=== PATIENT | female | born 1975 | race Caucasian/White ===

== ENCOUNTER 2019-12-12 06:50 | Observation (INO) | payer BC ==
--- OUTSIDE RECORDS SUMMARY | 2019-12-12 06:55 | XMS REPORT | Clinical Summary ---
:1975 Author Organization [facility] Address [address] [place] [address] Care Team Providers Name Role Phone Juan Carlos Mcarthur MD Primary Care Provider Allergies Active Allergy Reactions Severity Noted Date Comments Morphine 06/01/2017 Chest pain Medications Medication Sig Dispensed Refills Start Date End Date Status montelukast Take 1 tablet 90 tablet 3 12/15/2017 Act balaji (SINGULAIR) 10 mg (10 mg total) tabletIndications: by mouth every Sensory morning. polyneuropathy, Sensory neuropathy fluticasone (FLONASE) 2 sprays into 0 06/08/2017 Active 50 mcg/actuation nasal each nostril spray daily. amoxicillin-pot Take 1 tablet 0 Active clavulanate by mouth 2 (AUGMENTIN) 875-125 mg (two) times a per tablet day. 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 12/13/2016 Cervical spondylosis 12/13/2016 Sensory neuropathy 12/13/2016 Encounters Date Type Specialty Care Team Description 12/14/2018 Telephone Neurology Gulshan Kaminski MD after 12/11/2018 Family History Medical History Relation Name Comments Hypertension Father Hypertension Mother Relation Name Status Comments Father Mother Social History Tobacco Use Types Packs/Day Years Used Date Never Smoker Smokeless Tobacco: Never Used Alcohol Use Drinks/Week oz/Week Comments Yes occ Sex Assigned at Date Recorded Not on file Job Start Date Occupation Industry Not on file Not on file Not on file Travel History Travel Start Travel End No recent travel history available. 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
--- OUTSIDE RECORDS SUMMARY | 2019-12-12 06:55 | XMS REPORT | Continuity of Care Document ---
:1975 Author Organization [facility] t Address [address] [place] [address] Care Team Providers Name Role Phone Blue DANIELLE [place] Primary Care Physician Arnaldo Kaminski MD Attending Clinician Payers Payer Name Policy Policy Number Effective Expiration Source Type Date Date [employer] [place] xxxxxxxxxxxx 2017 [facility]/O BLUE 00:00:00 [employer] ESSENTIALSxxxxxxxxxxx x/06/2016-PresentHMO Problems Condition Condition Condition Status Onset Resolution Last Treating Co mments Source Name Details Category Date Date Treatment Clinician Date Meniscus Meniscus Disease Active 2017-06 [place] degenerati degenerati 2-20 Me thodi on, right on, right 00:00: st 00 Chronic Chronic Disease Active 2017-06 [place] pain of pain of 2-20 [facility] right knee right knee 00:00: st 00 Acute Acute Disease Active 2017-06 [place] diffuse diffuse 2-20 [facility] otitis otitis 00:00: st externa of externa of 00 left ear left ear Reactive Reactive Disease Active [place] airway airway 6-21 [facility] disease disease 00:00: st without without 00 complicati complicati on on Muscle Muscle Disease Active [place] spasm spasm 6-21 [facility] 00:00: st 00 Sensory Sensory Disease Active 2016-06 [place] polyneurop polyneurop 2-11 Me thodi athy athy 00:00: st 00 Lumbar Lumbar Disease Active [place] radiculopa radiculopa 6- Oh odi thy thy 00:00: st 00 Acquired Acquired Disease Active [place] INSOLE TACKER lesion INSOLE TACKER lesion - Me odi 00:00: st 00 Cervical Cervical Disease Active [place] spondylosi spondylosi 6- Oh odi s s 00:00: st 00 Sensory Sensory Disease Active [place] neuropathy neuropathy 6- Me odi 00:00: st 00 Pain in Pain in Problem Active [facility] of [facility] - left wrist left wrist Me moria l [facility] ent Clinics Jammed Jammed Problem Active [facility] interphala interphala Danna kes - ngeal ngeal Memoria joint of joint of l finger of finger of Outp ati right right ent hand, hand, Clinics initial initial encounter encounter Memory Memory Problem Active [facility] problem problem [facility] - Memoria l [facility] Clinics Reflux Reflux Problem Active [facility] IBS IBS Problem Active [facility] (irritable (irritable Danna kes - bowel bowel Memoria syndrome) syndrome) l [facility] Clinics Ganglion Ganglion Problem Active [facility] cyst of cyst of [facility] - volar volar Memoria aspect of aspect of l left wrist left wrist Ou tpati ent Clinics Pain, Pain, Problem Active [facility] joint, joint, [facility] - hand, hand, Memoria right right l [facility] Clinics Sinus Sinus Diagnosis Active [facility] problem problem [facility] - Memoria [facility] Clinics Allergic Allergic Problem Active [facility] rhinitis, rhinitis, Luke s - unspecifie unspecifie Me moria d d l [facility] ent Clinics Shortness Shortness Problem Active [facility] of breath of breath Luke s - Memoria [facility] ent Clinics Obstructiv Obstructiv Diagnosis Active [facility] e sleep e sleep [facility] - apnea apnea [facility] Clinics Seasonal Seasonal Problem Active [facility] allergies allergies Luke s - Memoria [facility] ent Clinics Grief Grief Problem Active [facility] Adult BMI Adult BMI Problem Active [facility] 39.0-39.9 39.0-39.9 Luke s - kg/sq m [facility] Allergies, Adverse Reactions, Alerts Allergy Allergy Status Severity Reaction(s) Onset Inactive Treating Comm ents Source Name Type Date Date Clinician Morphine Propensi Active 2016-06 Chest [place] to 2-06 pain [facility] adverse 00:00: st reaction 00 s to drug MORPHINE Adverse Active Hurts chest [facility] Reaction [facility] Family History Family Member Diagnosis Comments Start Date Stop Date Source Natural father Hypertension [place] [employer] Natural mother Hypertension [facility] Social History Social Habit Start Date Stop Date Quantity Comments Source Sex Assigned At [facility] ethodist Alcohol intake 2018-06-16 2018-06-16 Current drinker [place] on [employer] 00:00:00 00:00:00 of alcohol (finding) Alcohol Comment 2016-05-26 2016-05-26 occ [facility] ethodist 00:00:00 00:00:00 Smoking Status Start Date Stop Date Source Never smoker [facility] Medications Ordered Filled Start Stop Current Ordering Indication Dosage Frequency Signature Comments Components Source Medication Medication Date Date Medication? Clinician (SIG) Name Name ProAir HFA ProAir HFA Yes Anila [address] [facility] 1-25 [place] needed [facility] - 00:00: Memoria 00 [facility] meloxicam 2020 No Lumbar 15mg QD Take 1 [place] ston (MOBIC) 15 1-17 01-17 radiculopat tablet (15 [facility] mg tablet 00:00: 23:59 hy mg total) st 00 :00 by mouth daily. Fluticasone Fluticasone 2017-06 Yes Anila [address] Propionate Propionate 2-31 [place] each Danna kes - 00:00: nostril Memoria 00 [facility] amoxicillin 2017-06 Yes 1{tbl} Q.5D Take 1 [place] -pot 2-20 tablet by [facility] clavulanate 11:44: mouth 2 st (AUGMENTIN) 35 (two) 875-125 mg times a per tablet day. montelukast Yes Sensory 10mg QD Take 1 [place] (SINGULAIR) 6-21 neuropathy tablet (10 [facility] 10 mg 00:00: mg total) st tablet 00 by mouth every morning. fluticasone 2016-06 Yes 2{spray 2 sprays [place] (FLONASE) 2-13 } into each Metho di 50 00:00: nostril st mcg/actuati 00 daily. on nasal spray Metaxalone Metaxalone Yes Anila [address] [facility] l [facility] Allergy Allergy Yes Anila not [facility] Sinus-D Max Sinus-D Max [place] defined [facility] Memoria l [facility] Acid Acid Yes Anila not [facility] Equine Internship 200 Equine Internship 200 [place] defined [facility] - [facility] l [facility] Montelukast Montelukast Yes Anila [address] Sodium Sodium [facility] - Mem[facility] l Outpati ent Clinics [facility] Anila [address] Allergy Allergy [facility] - [facility] l [facility] Meloxicam Meloxicam Yes Anila [address] Superior kes - Memoria l [facility] Procedures This patient has no known procedures. Plan of Care Planned Activity Planned Date Details Comments Source Future Scheduled 2020-01-26 INFLUENZA VACCINE [place] [facility] Test 00:00:00 [code = INFLUENZA VACCINE] Future Scheduled 1995 Screening for [facility] thodist Test 00:00:00 malignant neoplasm of cervix (procedure) [code = 579336985] Encounters Start End Encounter Admission Attending Care Care Encounter Source Date/Time Date/Time Type Type Clinicians Facility Department ID 2019-03-28 2019-03-28 [facility] [id number] [facility] 13:00[facility] 13[facility]00[facility] [facility] Medicine Outpati ent Clinics 2019-01-23 2019-01-23 [facility] [id number] [address] 16:45:00 16:45:00 [facility] Medicine Medicine Outpati ent Clinics 2018-07-21 2018-07-21 [facility] [id number] [facility] 11:00:00 11:00:00 [facility] Medicine Medicine Outpati ent Clinics 2018-06-26 2018-06-26 [facility] [id number] 09:30:00 09:30:[address] [facility] Medicine Outpati ent Clinics 2018-02-17 2018-02-17 [facility] [id number] 10:45:00 10:45:00 [facility] 2018-01-23 2018-01-23 Outpatient Jostin Villasenor [id number] [facility] 14:30:00 14:30:00 [facility] ent Clinics Results This patient has no known results.
[2019-12-12] MEDS ORDERED: NA CHLORIDE 0.9% 1,000 ML ONE (07:16)
[2019-12-12] MEDS ORDERED: ADENOSINE 6 MG/ 2ML VIAL IV ONE ×3 (07:16→07:26)
[2019-12-12] MEDS ORDERED: METOPROLOL TARTRATE 5 MG/5 ML INJ IV ONE (07:25)
[2019-12-12 07:27] LABS: Absolute Lymphocytes (CBC) 2.8 K/uL (0.7-4.9); Basophils % 0.6 % (0-1.3); Hematocrit 39.7 % (36.0-45.0); Lymphocytes % 36.2 % (15.3-44.8); MPV 9.1 fL (7.6-11.3); RBC Red Blood Cell Count 4.47 M/uL (3.86-4.86)
[2019-12-12 08:27] LABS: ALT/SGPT 17 U/L (12-78); AST/SGOT 9 U/L (15-37); Albumin 3.8 g/dL (3.4-5.0); Alkaline Phosphatase 76 U/L (45-117); BUN Blood Urea Nitrogen 15 mg/dL (7-18); Bicarbonate 18 mmol/L (21-32); Bilirubin Direct < 0.1 mg/dL (0-0.2); Bilirubin Total 0.3 mg/dL (0.2-1.0); Glucose Level 135 mg/dL (74-106); Magnesium 2.1 mg/dL (1.8-2.4); NT PRO-BNP 60 pg/mL (<125); Potassium 3.6 mmol/L (3.5-5.1); Protein, Total 7.4 g/dL (6.4-8.2); Sodium Level 140 mmol/L (136-145); T3 Free 2.68 pg/mL (2.18-3.98); Troponin (Emerg Dept Use Only) < 0.02 ng/mL (0.0-0.045)
--- NOTE | 2019-12-12 08:50 | RAD REPORT ---
EXAM DESCRIPTION: RAD - Chest Single View - 12/12/2019 7:34 am CLINICAL HISTORY: PALPITATIONS Chest pain. COMPARISON: CHEST SINGLE VIEW dated 04/23/2013; CHEST PA AND LAT 2 VIEW dated 07/07/2010 FINDINGS: Portable technique limits examination quality. The lungs are grossly clear. The heart is normal in size. No displaced fractures. IMPRESSION: No acute intrathoracic process suspected.
[2019-12-12] MEDS ORDERED: METOPROLOL TAR 25 MG TAB ONE (08:52)
--- NOTE | 2019-12-12 10:59 | ER ---
Nurse's Notes [facility] Name: Nancy Palmer Age: 44 yrs Sex: Female : 1975 Arrival Date: 12/12/2019 Time: 06:52 Bed 2 Private MD: Diagnosis: Chest pain, unspecified;Supraventricular tachycardia;Elevated Troponin Presentation: 12/11 06:54 Chief complaint: Patient states: It feels like my heart is racing, feel a little off, sg with a shortness of breath as well, general weakness. Coronavirus screen: Proceed with normal triage. Ebola Screen: Patient negative for fever greater than or equal to 101.5 degrees Fahrenheit, and additional compatible Ebola Virus Disease symptoms Patient denies exposure to infectious person. Patient denies travel to an Ebola-affected area in the 21 days before illness onset. No symptoms or risks identified at this time. Initial Sepsis Screen: Does the patient meet any 2 criteria? No. Patient's initial sepsis screen is negative. Does the patient have a suspected source of infection? No. Patient's initial sepsis screen is negative. Risk Assessment: Do you want to hurt yourself or someone else? Patient reports no desire to harm self or others. Onset of symptoms was December 12, 2019. Care prior to arrival: None. Transition of care: patient was not received from another setting of care. 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 - Social history:: Smoking status: Patient denies any tobacco usage or history of. Screenin:29 Abuse screen: Denies threats or abuse. Nutritional screening: No deficits noted. ea Tuberculosis screening: No symptoms or risk factors identified. Fall Risk IV access (20 points). Assessment: 07:05 General: Appears uncomfortable, Behavior is calm, cooperative. Pain: Complains of pain aa5 in jaw and anterior neck Pain does not radiate. Pain currently is 8 out of 10 on a pain scale. Quality of pain is described as pressure, Is continuous. Neuro: Level of Consciousness is awake, alert, obeys commands, Oriented to person, place, time, situation. Cardiovascular: Heart tones S1 S2 present Rhythm is SVT. Respiratory: Airway is patent Respiratory effort is even, unlabored, Respiratory pattern is regular, symmetrical, Breath sounds are clear bilaterally. GI: Abdomen is round non-distended, Bowel sounds present X 4 quads. Abd is soft and non tender X 4 quads. Patient currently denies diarrhea, nausea, vomiting. : No signs and/or symptoms were reported regarding the genitourinary system. EENT: No signs and/or symptoms were reported regarding the EENT system. Derm: Skin is pink, warm \T\ dry. Musculoskeletal: Range of motion: intact in all extremities. 07:19 Reassessment: Patient is alert, oriented x 3, equal unlabored respirations, skin aa5 warm/dry/pink. Pt's HR decreased to 89bpm, NSR on monitor, repeat EKG ordered by PA. . 07:20 Reassessment: Pt reports jaw pressure and flutter subsided, NSR on monitor, HR 86. ea 07:30 Reassessment: Patient is alert, oriented x 3, equal unlabored respirations, skin aa5 warm/dry/pink. Patient states feeling better. Pain: Denies pain. 07:30 Cardiovascular: Rhythm is sinus rhythm. aa5 08:00 Reassessment: Patient is alert, oriented x 3, equal unlabored respirations, skin aa5 warm/dry/pink. Patient states feeling better. Patient states symptoms have improved. NSR on monitor. Awaiting complete results, pt notified of wait time. . 08:00 Pain: Denies pain. aa5 08:45 Reassessment: Patient is alert, oriented x 3, equal unlabored respirations, skin aa5 warm/dry/pink. Patient denies pain at this time. Awaiting x-ray results. 08:45 Cardiovascular: Rhythm is sinus rhythm. aa5 09:30 Reassessment: Patient is alert, oriented x 3, equal unlabored respirations, skin aa5 warm/dry/pink. Patient denies pain at this time. 09:30 Cardiovascular: Rhythm is sinus rhythm. aa5 10:45 Reassessment: Patient is alert, oriented x 3, equal unlabored respirations, skin aa5 warm/dry/pink. Patient denies pain at this time. Pt asssisted to restroom via wheelchair, placed back in bed. Awaiting repeat troponin results. . 11:15 Reassessment: Patient is alert, oriented x 3, equal unlabored respirations, skin aa5 warm/dry/pink. Joseph Gramajo NP (Hospitalist with Dr. Jeffrey) at bedside speaking to patient. Pt notified of wait time for room assignment. . 12:20 Reassessment: Patient is alert, oriented x 3, equal unlabored respirations, skin aa5 warm/dry/pink. Patient denies pain at this time. Awaiting Echocardiogram. POC is if Echo is normal pt will be discharged home, pt notified and agrees with POC. . 13:00 Reassessment: Patient is alert, oriented x 3, equal unlabored respirations, skin aa5 warm/dry/pink. Pt sitting up in bed eating lunch, pt tolerating well. . 13:09 Reassessment: Barbra with ECHO at bedside . aa5 13:32 Reassessment: ECHO completed, awaiting results. . aa5 14:00 Reassessment: Patient is alert, oriented x 3, equal unlabored respirations, skin aa5 warm/dry/pink. Awaiting ECHO results for d/c home, pt notified of wait time. . 15:27 Reassessment: Patient is alert, oriented x 3, equal unlabored respirations, skin aa5 warm/dry/pink. See eÇift documentation for d/c information. . Vital Signs: 07:00 BP 97 / 66; Pulse 228; Resp 20 S; Temp 97.1(TE); Pulse Ox 98% on R/A; Weight 115.21 kg aa5 (R); Height 5 ft. 7 in. (170.18 cm) (R); Pain 0/10; 07:05 BP 97 / 66; Pulse 226; Resp 24 S; Pulse Ox 97% on R/A; aa5 07:10 BP 90 / 79; Pulse 226; Resp 22 S; Pulse Ox 97% on R/A; aa5 07:12 BP 111 / 68; Pulse 219; Resp 22 S; Pulse Ox 98% on R/A; aa5 07:16 BP 93 / 66; Pulse 227; Resp 24 S; Pulse Ox 98% on R/A; aa5 07:17 BP 80 / 42; Pulse 215; Resp 20 S; Pulse Ox 97% on R/A; aa5 07:18 BP 84 / 73; Pulse 215; Resp 20 S; Pulse Ox 97% on R/A; aa5 07:19 BP 107 / 66; Pulse 89; Resp 20 S; Pulse Ox 97% on R/A; aa5 07:30 BP 101 / 65; Pulse 77; Resp 16 S; Pulse Ox 97% on R/A; aa5 08:00 BP 110 / 89; Pulse 68; Resp 16 S; Pulse Ox 99% on R/A; aa5 09:00 BP 117 / 85; Pulse 63; Resp 16; Pulse Ox 99% ; jl7 10:00 BP 105 / 63; Pulse 57; Resp 17; Pulse Ox 100% ; jl7 10:52 BP 105 / 83; Pulse 56; Resp 17; Pulse Ox 99% ; aa5 11:30 BP 115 / 91; Pulse 57; Resp 16 S; Temp 97.8(TE); Pulse Ox 99% on R/A; aa5 12:30 BP 117 / 86; Pulse 58; Resp 14 S; Pulse Ox 98% on R/A; aa5 13:30 BP 109 / 87; Pulse 65; Resp 14 S; Pulse Ox 97% on R/A; aa5 14:30 BP 105 / 71; Pulse 62; Resp 18 S; Pulse Ox 99% on R/A; aa5 07:00 Body Mass Index 39.78 (115.21 kg, 170.18 cm) aa5 ED Course: 06:52 Patient arrived in ED. cl3 06:53 Arm band placed on. sg 06:55 Triage completed. sg 06:57 Fredrick Parker PA is PHCP. cp 06:57 Duy Vo MD is Attending Physician. cp 07:02 Attending Physician role handed off by Duy Vo MD cp 07:02 Fredrick Forte MD is Attending Physician. cp 07:05 Report received from INGA Alvarez. aa5 07:05 Initial lab(s) drawn, by ms, sent to lab. Inserted saline lock: 18 gauge in right aa5 antecubital area, using aseptic technique. Blood collected. 07:24 Orly Naidu RN is Primary Nurse. aa5 07:29 Patient has correct armband on for positive identification. Bed in low position. Call ea light in reach. Side rails up X2. 07:29 Inserted saline lock: 20 gauge in left antecubital area, using aseptic technique. ea 07:32 EKG done, by ED staff, reviewed by Fredrick DAVIDSON. dh3 07:34 XRAY Chest (1 view) In Process Unspecified. EDMS 10:45 EKG done, by ED staff, reviewed by Fredrick DAVIDSON. aa5 10:56 Jesus Jeffrey DO is Hospitalizing Provider. cp 13:50 Echocardiogram with doppler done by icu tech. tc 15:12 No provider procedures requiring assistance completed. IV discontinued, intact, jl7 bleeding controlled, No redness/swelling at site. Pressure dressing applied. Administered Medications: 07:05 Drug: Adenosine 6 mg {Note: VO received at 0705 at bedside .} Route: IVP; Site: right [facility] antecubital; 07:07 Follow up: Response: No change in condition aa5 07:07 Drug: NS 0.9% 1000 ml Route: IV; Rate: 1 bolus; Site: right antecubital; aa5 08:00 Follow up: IV Status: Completed infusion; IV Intake: 1000ml aa5 07:08 Drug: Adenosine 6 mg {Note: VO at bedside at 0708.} Route: IVP; Site: right antecubital;aa5 07:10 Follow up: Response: No change in condition aa5 07:13 Drug: Adenosine 12 mg {Note: VO at bedside at 0713.} Route: IVP; Site: right aa antecubital; 07:15 Follow up: Response: No change in condition aa5 07:16 Drug: Metoprolol 2.5 mg {Note: VO at bedside at 0715. BP decreased to 80/42 after aa5 administration. .} Route: IVP; Site: right antecubital; 07:18 Follow up: Response: No adverse reaction aa5 07:18 Drug: Adenosine 12 mg {Note: VO at bedside at 0718.} Route: IVP; Site: right 5 antecubital; 07:20 Follow up: Response: Marked relief of symptoms aa5 08:45 Drug: Metoprolol 25 mg Route: PO; aa5 11:18 Drug: Aspirin Chewable Tablet 324 mg Route: PO; aa5 Intake: 08:00 IV: 1000ml; Total: 1000ml. aa5 Outcome: 10:58 Decision to Hospitalize by Provider. cp 14:00 Admitted to Tele Other Pt is hospitalized. Awaiting in ER for Echo results before d/c aa5 home per Dr. Drake and Joseph Gramajo NP. 15:27 Patient left the ED. 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 7 in. Reported; BMI: 39.7; Pain 0/10; jd3 11:00 07:00 Acuity: JUSTIN 2 jl7 aa5 15:37 15:12 Condition: stable jl7 aa5 15:37 15:12 Admitted to Tele accompanied by nurse, via wheelchair, room 402, with chart, aa5 Report called to INGA Cabrera 15:37 15:12 Discharge instructions given to patient, family, Instructed on the need for aa5 admit, Demonstrated understanding of instructions, anselmo
--- NOTE | 2019-12-12 10:59 | EDPHYS ---
Physician Documentation [facility] Name: Nancy Palmer Age: 44 yrs Sex: Female : 1975 Arrival Date: 12/12/2019 Time: 06:52 Bed 2 Private MD: ED Physician Fredrick Forte HPI: 12/11 07:05 This 44 yrs old Female presents to ER via Ambulatory with complaints of Fast cp Heart Rate. 07:05 The patient presents with a history of heart racing. cp 07:05 Context: The symptoms occur woke patient from sleep. Onset: The symptoms/episode cp began/occurred this morning. Duration: The patient or guardian reports a single episode, that is still ongoing, and unchanged. Associated signs and symptoms: Pertinent positives: chest pain, jaw pain, Pertinent negatives: cough, fever, lightheadedness, syncope, vomiting. Severity of symptoms: in the emergency department the symptoms are unchanged despite home interventions. The patient has not experienced similar symptoms in the past. 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 - Social history:: Smoking status: Patient denies any tobacco usage or history of. ROS: 07:08 Constitutional: Negative for body aches, chills, fever, poor PO intake. cp 07:08 Eyes: Negative for injury, pain, redness, and discharge. cp 07:08 Cardiovascular: Positive for chest pain, palpitations. cp 07:08 ENT: Negative for ear pain, sore throat, difficulty swallowing, difficulty handling cp secretions. 07:08 Respiratory: Negative for cough, shortness of breath, wheezing. 07:08 Abdomen/GI: Negative for abdominal pain, nausea, vomiting, and diarrhea, constipation. 07:08 Back: Negative for radiated pain. 07:08 Neuro: Negative for altered mental status, dizziness, headache, syncope, weakness. 07:08 All other systems are negative. Exam: 07:10 ECG was reviewed by the Attending Physician. cp 07:12 Constitutional: The patient appears in no acute distress, alert, awake, cp non-diaphoretic, non-toxic, well developed, well nourished. 07:12 Head/Face: Normocephalic, atraumatic. cp 07:12 Eyes: Periorbital structures: appear normal, Conjunctiva: normal, no exudate, no injection, Sclera: no appreciated abnormality, Lids and lashes: appear normal, bilaterally. 07:12 ENT: External ear(s): are unremarkable, Nose: is normal, Mouth: is normal, Posterior pharynx: is normal, airway is patent, no erythema, no exudate. 07:12 Neck: ROM/movement: is normal, is supple, without pain, no range of motions limitations, no nuchal rigidity. 07:12 Chest/axilla: Inspection: normal, Palpation: is normal, no crepitus, no tenderness. 07:12 Cardiovascular: Rate: tachycardic, Rhythm: regular, Edema: is not appreciated, JVD: is not appreciated. 07:12 Respiratory: the patient does not display signs of respiratory distress, Respirations: normal, no use of accessory muscles, no retractions, labored breathing, is not present, Breath sounds: are clear throughout, no decreased breath sounds, no stridor, no wheezing. 07:12 Abdomen/GI: Inspection: abdomen appears normal, Palpation: abdomen is soft and non-tender, in all quadrants. 07:12 Neuro: Orientation: to person, place \T\ time. Mentation: is normal, Cerebellar function: is grossly normal, Motor: moves all fours, strength is normal, Sensation: is normal. 07:37 ECG was reviewed by the Attending Physician. cp 10:45 ECG was reviewed by the Attending Physician. cp Vital Signs: 07:00 BP 97 / 66; Pulse 228; Resp 20 S; Temp 97.1(TE); Pulse Ox 98% on R/A; Weight 115.21 kg aa5 (R); Height 5 ft. 7 in. (170.18 cm) (R); Pain 0/10; 07:05 BP 97 / 66; Pulse 226; Resp 24 S; Pulse Ox 97% on R/A; aa5 07:10 BP 90 / 79; Pulse 226; Resp 22 S; Pulse Ox 97% on R/A; aa5 07:12 BP 111 / 68; Pulse 219; Resp 22 S; Pulse Ox 98% on R/A; aa5 07:16 BP 93 / 66; Pulse 227; Resp 24 S; Pulse Ox 98% on R/A; aa5 07:17 BP 80 / 42; Pulse 215; Resp 20 S; Pulse Ox 97% on R/A; aa5 07:18 BP 84 / 73; Pulse 215; Resp 20 S; Pulse Ox 97% on R/A; aa5 07:19 BP 107 / 66; Pulse 89; Resp 20 S; Pulse Ox 97% on R/A; aa5 07:30 BP 101 / 65; Pulse 77; Resp 16 S; Pulse Ox 97% on R/A; aa5 08:00 BP 110 / 89; Pulse 68; Resp 16 S; Pulse Ox 99% on R/A; aa5 09:00 BP 117 / 85; Pulse 63; Resp 16; Pulse Ox 99% ; jl7 10:00 BP 105 / 63; Pulse 57; Resp 17; Pulse Ox 100% ; jl7 10:52 BP 105 / 83; Pulse 56; Resp 17; Pulse Ox 99% ; aa5 11:30 BP 115 / 91; Pulse 57; Resp 16 S; Temp 97.8(TE); Pulse Ox 99% on R/A; aa5 12:30 BP 117 / 86; Pulse 58; Resp 14 S; Pulse Ox 98% on R/A; aa5 13:30 BP 109 / 87; Pulse 65; Resp 14 S; Pulse Ox 97% on R/A; aa5 14:30 BP 105 / 71; Pulse 62; Resp 18 S; Pulse Ox 99% on R/A; aa5 07:00 Body Mass Index 39.78 (115.21 kg, 170.18 cm) aa5 MDM: 07:03 Patient medically screened. 10:52 Data reviewed: vital signs, nurses notes, lab test result(s), EKG, radiologic studies, cp plain films, I have discussed the patient's presentation/case with the attending Emergency Department Physician; and as a result, I will admit patient. 10:55 Counseling: I had a detailed discussion with the patient and/or guardian regarding: the cp historical points, exam findings, and any diagnostic results supporting the discharge/admit diagnosis, lab results, radiology results. 10:55 Response to treatment: the patient's symptoms have markedly improved after treatment. cp 06/17 07:05 Order name: Basic Metabolic Panel; Complete Time: 08:33 cp 17 08:34 Interpretation: Normal except: CL 113; CO2 18; GLUC 135; GFR 53. cp 17 07:05 Order name: CBC with Diff; Complete Time: 08:33 cp 17 07:05 Order name: LFT's; Complete Time: 08:33 cp 17 07:05 Order name: Magnesium; Complete Time: 08:33 cp 12/11 07:05 Order name: NT PRO-BNP; Complete Time: 08:33 cp 12/11 07:05 Order name: PT-INR; Complete Time: 08:33 cp 12/11 07:05 Order name: Troponin (emerg Dept Use Only); Complete Time: 08:33 cp 12/11 07:05 Order name: XRAY Chest (1 view); Complete Time: 08:55 cp 12/11 08:55 Interpretation: Report review. cp 12/11 07:05 Order name: TSH; Complete Time: 08:33 cp 12/11 07:05 Order name: T3 Free; Complete Time: 08:33 cp 12/11 07:05 Order name: T4 Free; Complete Time: 08:33 cp 12/11 10:07 Order name: Troponin (emerg Dept Use Only): Repeat; Complete Time: 10:49 aa5 12/11 10:56 Order name: Urine Dipstick--Ancillary (enter results); Complete Time: 11:39 em1 12/11 11:41 Order name: Echo w/ Doppler cp 12/11 07:05 Order name: EKG; Complete Time: 07:06 cp 12/11 07:05 Order name: Cardiac monitoring; Complete Time: 07:24 cp 12/11 07:05 Order name: EKG - Nurse/Tech; Complete Time: 07:24 cp 12/11 07:05 Order name: IV Saline Lock; Complete Time: 07:24 cp 12/11 07:05 Order name: Labs collected and sent; Complete Time: 07:24 cp 12/11 07:05 Order name: O2 Per Protocol; Complete Time: 07:24 cp 12/11 07:05 Order name: O2 Sat Monitoring; Complete Time: 07:24 cp 12/11 11:29 Order name: Diet Heart Healthy; Complete Time: 11:30 aa5 12/11 07:05 Order name: Urine Dipstick-Ancillary (obtain specimen); Complete Time: 10:44 12/11 07:05 Order name: Urine Test (obtain specimen); Complete Time: 10:44 12/11 07:05 Order name: IV; Complete Time: 07:24 12/11 10:07 Order name: EKG - Nurse/Tech: Repeat; Complete Time: 10:37 aa5 EC:10 Rate is 214 beats/min. Rhythm is regular. QRS interval is prolonged at 152 msec. QT cp interval is normal. Interpreted by me. Reviewed by me. 07:37 Rate is 66 beats/min. Rhythm is regular. IN interval is normal. QRS interval is normal. cp QT interval is normal. Interpreted by me. Reviewed by me. 10:45 Rate is 55 beats/min. Rhythm is regular. IN interval is normal. QRS interval is normal. cp QT interval is normal. T waves are Inverted in lead aVR. Interpreted by me. Reviewed by me. Administered Medications: 07:05 Drug: Adenosine 6 mg {Note: VO received at 0705 at bedside .} Route: IVP; Site: right [address]; 07:07 Follow up: Response: No change in condition aa5 07:07 Drug: NS 0.9% 1000 ml Route: IV; Rate: 1 bolus; Site: right antecubital; aa5 08:00 Follow up: IV Status: Completed infusion; IV Intake: 1000ml aa5 07:08 Drug: Adenosine 6 mg {Note: VO at bedside at 0708.} Route: IVP; Site: right antecubital;aa5 07:10 Follow up: Response: No change in condition aa5 07:13 Drug: Adenosine 12 mg {Note: VO at bedside at 0713.} Route: IVP; Site: right [facility] antecubital; 07:15 Follow up: Response: No change in condition aa5 07:16 Drug: Metoprolol 2.5 mg {Note: VO at bedside at 0715. BP decreased to 80/42 after aa5 administration. .} Route: IVP; Site: right antecubital; 07:18 Follow up: Response: No adverse reaction aa5 07:18 Drug: Adenosine 12 mg {Note: VO at bedside at 0718.} Route: IVP; [address]; 07:20 Follow up: Response: Marked relief of symptoms aa5 08:45 Drug: Metoprolol 25 mg Route: PO; aa5 11:18 Drug: Aspirin Chewable Tablet 324 mg Route: PO; aa5 Disposition: 12/12 13:25 Co-signature as Attending Physician, Fredrick Forte MD I agree with the assessment and milad plan of care. Disposition: 12/12/19 10:58 Hospitalization ordered by Jesus Jeffrey for Observation. Preliminary diagnosis are Chest pain, unspecified, Supraventricular tachycardia, Elevated Troponin. - Bed requested for Telemetry/MedSurg (observation). - Status is Observation. ss - Condition is Stable. - Problem is new. - Symptoms have improved. Signatures: Dispatcher [employer] EDMS Sabina Lacy RN Hammad Peguero RN RN sg Anderson, Corey, MD MD cha Calderon, Audri, RN RN aa5 Smirch, Shelby, RN RN ss Avila, Joseph, COMPUTATIONAL CHEMIST-C COMPUTATIONAL CHEMIST-Cla1 Fredrick Parker PA PA cp Antunez, Elena RN INGA weinberg Corrections: (The following items were deleted from the chart) 12/11 11:52 10:58 Hospitalization Ordered by Jesus Jeffrey DO for Observation. Preliminary kl diagnosis is Chest pain, unspecified; Supraventricular tachycardia; Elevated Troponin. Bed requested for Telemetry/MedSurg (observation). Status is Observation. Condition is Stable. Problem is new. Symptoms have improved. cp 15:27 11:52 12/12/2019 10:58 Hospitalization Ordered by Jesus Jeffrey DO for Observation. ss Preliminary diagnosis is Chest pain, unspecified; Supraventricular tachycardia; Elevated Troponin. Bed requested for Telemetry/MedSurg (observation). Status is Observation. Condition is Stable. Problem is new. Symptoms have improved. kl
[2019-12-12] MEDS ORDERED: ASPIRIN 81 MG CHEWABLE TABLET ONE (11:23)
[2019-12-12 11:30] LABS: Urine Blood NEGATIVE (NEG); Urine Glucose NEGATIVE (NEG); Urine Protein NEGATIVE (NEG)
--- NOTE | 2019-12-12 11:51 | P.HP ---
Certification for Inpatient Patient admitted to: Observation With expected LOS: <2 Midnights Patient will require the following post-hospital care: None Practitioner: I am a practitioner with admitting privileges, knowledge of patient current condition, hospital course, and medical plan of care. Services: Services provided to patient in accordance with Admission requirements found in Title 42 Section 412.3 of the Code of Federal Regulations Patient History Date of Service: 12/12/19 Primary Care Provider: Anila Tapia Reason for admission: Supraventricular tachycardia with elevated troponin History of Present Illness: 44-year-old female with medical history of TMJ presented to the emergency department with chief complaint of palpitations and neck/jaw pain. Patient reports that she was woken from sleep with a sensation. Upon arrival to the emergency department patient's heart rate was greater than 200. Patient received adenosine and metoprolol and was successfully cardioverted to a normal sinus rhythm. Patient has 2nd troponin level was slightly elevated at 0.27. At this point in time. ED provider wishes to admit patient for further evaluation and management of this condition. When I saw the patient in the emergency department she was in normal sinus rhythm. Patient denies any pain at this time. Patient denies any recreational drug use, but does admit to regular caffeine consumption. Thyroid function was checked in the emergency department and was within normal limits. Home medications list reviewed: Yes - Past Medical/Surgical History Has patient received pneumonia vaccine in the past: No Diabetic: No -: TMJ -: Hysterectomy -: Right knee surgery Psychosocial/ Personal History: The patient is and lives at home with her and 2 children. - Family History Father -: Hypertension Mother -: Hypertension - Social History Smoking Status: Never smoker Alcohol use: Yes CD- Drugs: No Caffeine use: Yes Place of Residence: Home Review of Systems General: Unremarkable Eyes: Unremarkable ENT: Unremarkable Respiratory: Unremarkable Cardiovascular: Palpitations, As per HPI Gastrointestinal: Unremarkable Genitourinary: Unremarkable Musculoskeletal: As per HPI Integumentary: Unremarkable Neurological: Unremarkable Lymphatics: Unremarkable Physical Examination - Physical Exam General: Alert, In no apparent distress, Oriented x3 HEENT: Atraumatic, Normocephalic, Mucous membr. moist/pink Neck: Supple, Without JVD or thyroid abnormality Respiratory: Clear to auscultation bilaterally, Normal air movement Cardiovascular: No edema, Regular rate/rhythm, Normal S1 S2 Capillary refill: <2 Seconds Gastrointestinal: Normal bowel sounds, Soft and benign Musculoskeletal: No clubbing, No swelling, No erythema, No tenderness, No warmth Integumentary: No tenderness/swelling, No erythema Neurological: Normal gait, Normal speech, Normal tone, Normal affect - Studies Laboratory Data (last 24 hrs) 12/12/19 07:10: PT 11.8, INR 1.00 12/12/19 07:10: WBC 7.8, Hgb 13.0, Hct 39.7, Plt Count 286 12/12/19 07:10: Sodium 140, Potassium 3.6, BUN 15, Creatinine 1.12, Glucose 135 H, Magnesium 2.1, Total Bilirubin 0.3, AST 9 L, ALT 17, Alkaline Phosphatase 76 Assessment and Plan - Plan Assessment Supraventricular tachycardia with elevated troponin now resolved TMJ Plan Supraventricular tachycardia with elevated troponin now resolved: The patient is now in sinus rhythm. Cardiology has been consulted on this case. Patient will remain on telemetry throughout the duration of this hospitalization. Echocardiogram has been ordered will be obtained. Will initiate beta-nitesh therapy at this time. DVT prophylaxis with Lovenox 40 mg subcutaneous once daily. Patient denies recreational drug use and thyroid function was measured in normal in the emergency department. Will recommend patient discontinue use caffeine use. Appreciate further input from cardiology. Anticipate discharge the next 24 hr. TMJ: Will obtain and continue patient's home medications. Discharge Plan: Home Plan to discharge in: 24 Hours - Advance Directives Does patient have a Living Will: No Does patient have a Durable POA for Healthcare: No - Code Status/Comfort Care Code Status Assessed: Yes (Patient is full code) Critical Care: No Time Spent Managing Pts Care (In Minutes): 55
--- NOTE | 2019-12-12 14:42 | P.DS ---
Admission Date: 12/12/19 Discharge Date: 12/12/19 Primary Care Provider: Anila Tapia Disposition: ROUTINE DISCHARGE Discharge Condition: GOOD Reason for Admission: Supraventricular tachycardia with elevated troponin Consultations: Cardiology- Dr. Drake Procedures: Chest X ray FINDINGS: Portable technique limits examination quality. The lungs are grossly clear. The heart is normal in size. No displaced fractures. IMPRESSION: No acute intrathoracic process suspected. Echocardiogram Performed, reported to have normal ejection fraction. Medical problem list Supraventricular tachycardia with elevated troponin Brief History of Present Illness: 44-year-old female with medical history of TMJ presented to the emergency department with chief complaint of palpitations and neck/jaw pain. Patient reports that she was woken from sleep with a sensation. Upon arrival to the emergency department patient's heart rate was greater than 200. Patient received adenosine and metoprolol and was successfully cardioverted to a normal sinus rhythm. Patient has 2nd troponin level was slightly elevated at 0.27. At this point in time. ED provider wishes to admit patient for further evaluation and management of this condition. When I saw the patient in the emergency department she was in normal sinus rhythm. Patient denies any pain at this time. Patient denies any recreational drug use, but does admit to regular caffeine consumption. Thyroid function was checked in the emergency department and was within normal limits. Hospital Course: Patient was admitted this morning for supraventricular tachycardia which resolved with mild elevation of the troponin level. Patient was started on beta-nitesh therapy and evaluated by cardiology. Echocardiogram was performed and reported by cardiology to have a normal ejection fraction. Patient has maintained normal sinus rhythm on telemetry during this hospitalization. Thyroid function was evaluated and found to be normal. Cardiology recommends initiating beta-nitesh therapy on an outpatient basis and having her follow up in office in the next 2 weeks. Patient is to continue with metoprolol 12.5 mg by mouth twice daily to maintain a blood pressure of less than 140/90 further adjustment can be performed by her primary care doctor. Also recommend cessation of caffeine containing products. Patient is to return to emergency department with new or worsening symptoms. General: Alert, In no apparent distress, Oriented x3 HEENT: Atraumatic, Normocephalic Neck: Supple Respiratory: Clear to auscultation bilaterally, Normal air movement Cardiovascular: No edema, Regular rate/rhythm, Normal S1 S2, No murmurs Capillary refill: <2 Seconds Gastrointestinal: Normal bowel sounds, No tenderness Musculoskeletal: No erythema, No tenderness, No warmth Integumentary: No tenderness/swelling, No erythema, No warmth Neurological: Normal gait, Normal speech, Normal strength at 5/5 x4 extr, Normal tone Laboratory Data at Discharge: WBC 7.8 K/uL (4.3-10.9) 12/12/19 07:10 Hgb 13.0 g/dL (12.0-15.0) 12/12/19 07:10 Hct 39.7 % (36.0-45.0) 12/12/19 07:10 Plt Count 286 K/uL (152-406) 12/12/19 07:10 PT 11.8 SECONDS (9.5-12.5) 12/12/19 07:10 INR 1.00 12/12/19 07:10 Sodium 140 mmol/L (136-145) 12/12/19 07:10 Potassium 3.6 mmol/L (3.5-5.1) 12/12/19 07:10 BUN 15 mg/dL (7-18) 12/12/19 07:10 Creatinine 1.12 mg/dL (0.55-1.3) 12/12/19 07:10 Glucose 135 mg/dL (74-106) H 12/12/19 07:10 Magnesium 2.1 mg/dL (1.8-2.4) 12/12/19 07:10 Total Bilirubin 0.3 mg/dL (0.2-1.0) 12/12/19 07:10 AST 9 U/L (15-37) L 12/12/19 07:10 ALT 17 U/L (12-78) 12/12/19 07:10 Alkaline Phosphatase 76 U/L (45-117) 12/12/19 07:10 Home Medications: Metoprolol Tartrate [Lopressor*] 12.5 mg PO BID #60 tab 12/12/19 New Medications: Metoprolol Tartrate [Lopressor*] 12.5 mg PO BID #60 tab Patient Discharge Instructions: 1. Recommend follow up with primary care doctor in the next 2-4 weeks regarding this hospitalization. Please follow up with Dr. Drake in the next 2 weeks regarding this hospitalization. 2. Patient was admitted this morning for supraventricular tachycardia which resolved with mild elevation of the troponin level. Patient was started on beta-nitesh therapy and evaluated by cardiology. Echocardiogram was performed and reported by cardiology to have a normal ejection fraction. Patient has maintained normal sinus rhythm on telemetry during this hospitalization. Thyroid function was evaluated and found to be normal. Cardiology recommends initiating beta-nitesh therapy on an outpatient basis and having her follow up in office in the next 2 weeks. Patient is to continue with metoprolol 12.5 mg by mouth twice daily to maintain a blood pressure of less than 140/90 further adjustment can be performed by her primary care doctor. Also recommend cessation of caffeine containing products. Patient is to return to emergency department with new or worsening symptoms. Diet: AHA Activity: Ad ugo Followup: Obi Drake MD [ACTIVE - CAN ADMIT] - Time spent managing pt's care (in minutes): 55
[2019-12-12 15:59] VITALS: TEMP 97.8
[2019-12-12 16:02] VITALS: BP 109/87; O2SAT 97
--- NOTE | 2019-12-13 01:06 | CON ---
Reason For Consultation: Patient admitted to the emergency room on 12/12/[address] Jeffrey and Dr. Forte for supraventricular tachycardia. History Of Present Illness: Ms. Palmer is 44, has no significant past cardiac history. She has a his tory of ADD. She does not take any medicine. She has no allergies. Came in with an episode of SVT with a rate of about 220, responded to IV Adenocard. She is now in sinus rhythm. Her troponin was 0 .27. I was consulted mostly because of that. When she had her SVT she did have some chest pain and neck pain and jaw pain. Denied orthopnea, pedal edema. She denied any syncope. She denied excessiv e use of alcohol or caffeine. Allergies: NONE. Review of Systems: Negative. Social History: Negative. Family History: Noncontributory. Home Medications: None. Physical Examination: General: She was pleasant, in no acute distress. Normal sinus rhythm. HEENT: Negative. Neck: Supple, no bruit. Chest: Clear. Cardiac: Revealed a regular rhythm and rate. No murmurs, gallops, or rubs. Abdomen: Benign. Extremities: Revealed no clubbing, cyanosis, or edema. Diagnostic Data: All within normal limits. Her EKG now is normal, troponin is 0.27. TSH is normal. Echocardiogram is normal. Impression And Plan: 1.Supraventricular tachycardia, resolved after adenosine. 2.Elevated troponin secondary to supraventricular tachycardia. Patient has normal thyroid, normal e cho. She is asymptomatic. She should go home on a low-dose beta-nitesh and I will see her in the o ffice in the near future. If this becomes a recurrent problem, we will consider an ablation. LEW/BLAIR Voice ID: [id number] Report ID: [id number]
--- NOTE | 2019-12-13 07:27 | EKG ---
Test Date: 2019-12-12 Test Time: 10:36:06 Project Accountant: HAVEN MEASUREMENT RESULTS: Intervals: Rate: 55 UT: 164 QRSD: 78 QT: 428 QTc: 409 [place]: P: 49 UT: 164 QRS: 42 T: 44 INTERPRETIVE STATEMENTS: Sinus bradycardia Otherwise normal ECG Compared to ECG 12/12/2019 07:32:57 Sinus rhythm no longer present ST (T wave) deviation no longer present Electronically Signed On 12-13-19 07:24:19 CDT by Obi Drake
--- NOTE | 2019-12-13 07:27 | EKG ---
Test Date: 2019-12-12 Test Time: 07:32:57 Mobile Application Development Lead: SERGIO MEASUREMENT RESULTS: Intervals: Rate: 66 TX: 168 QRSD: 82 QT: 414 QTc: 434 [place]: P: 68 TX: 168 QRS: 56 T: 54 INTERPRETIVE STATEMENTS: Normal sinus rhythm Nonspecific ST abnormality Abnormal ECG Compared to ECG 12/12/2019 07:03:25 ST (T wave) deviation now present Wide-QRS tachycardia no longer present Electronically Signed On 12-13-19 07:24:25 CDT by Obi Drake
--- NOTE | 2019-12-13 07:28 | EKG ---
Test Date: 2019-12-12 Test Time: 07:03:25 Provider Education Specialist: QUAN MEASUREMENT RESULTS: Intervals: Rate: 214 [place]: QRSD: 152 QT: 204 QTc: 385 [place]: P: [place]: QRS: 19 T: -56 INTERPRETIVE STATEMENTS: Wide QRS tachycardia Nonspecific intraventricular block Abnormal ECG Compared to ECG 04/23/2013 10:03:32 Wide-QRS tachycardia now present Sinus bradycardia no longer present Electronically Signed On 12-13-19 07:24:27 CDT by Obi Drake
--- NOTE | 2019-12-13 09:59 | ECHO ---
HEIGHT: 5 ft 7 in WEIGHT: 254 lb 0 oz DATE OF STUDY: 12/12/[address]: Fredrick Parker PAC 2-DIMENSIONAL: YES M.MODE: YES DOPPLER: YES COLOR FLOW: YES TDS: NO PORTABLE: YES DEFINITY: NO BUBBLE STUDY: NO DIAGNOSIS: SUPRAVENTRICULAR CARDIAC HISTORY: CATHERIZATION: NO SURGERY: NO PROSTHETIC VALVE: NO PACEMAKER: NO MEASUREMENTS (cm) DIASTOLIC (NORMALS) SYSTOLIC (NORMALS) IVSd 0.7 (0.6-1.2) LA Diam 3.2 (1.9-4.0) LVEF 61% LVIDd 5.1 (3.5-5.7) LVIDs 3.4 (2.0-3.5) %FS 33% LVPWd 0.9 (0.6-1.2) Ao Diam 3.0 (2.0-3.7) 2 DIMENSIONAL ASSESSMENT: RIGHT ATRIUM: NORMAL LEFT ATRIUM: NORMAL RIGHT VENTRICLE: NORMAL LEFT VENTRICLE: NORMAL TRICUSPID VALVE: NORMAL MITRAL VALVE: NORMAL PULMONIC VALVE: NORMAL AORTIC VALVE: NORMAL PERICARDIAL EFFUSION: NONE AORTIC ROOT: NORMAL LEFT VENTRICULAR WALL MOTION: NORMAL DOPPLER/COLOR FLOW: NORMAL COMMENTS: NORMAL 2D ECHOCARDIOGRAM WITH DOPPLER. NO MITRAL VALVE PROLAPSE. NO EFFUSION. TECHNOLOGIST: Marty ROSE
== END 2019-12-12 15:25 | disposition home or self-care (01) ==
LOC: ER 06:50 → ERHOLD 11:37
PROVIDERS: ADMIT Family Medicine; ATTEND Family Medicine
DX: I47.1 Supraventricular tachycardia (principal); R79.89 Other specified abnormal findings of blood chemistry
CPT/HCPCS: 96361; 93005 ×3; 93306; 85025; 80048; 36415; 83735; 85610; 80076; 84443; 81003; 84484 ×2; 84481; 84439; 83880; 71045; 96375; 96374; 99291; 99292; J0153 ×3; J7030; G0378 ×2